=== PATIENT | female | born 1965 | race Caucasian/White ===

== ENCOUNTER 2016-08-07 12:31 | Emergency (ER) | payer OTHER ==
[2016-08-07 14:21] VITALS: BP 140/81
--- NOTE | 2016-08-07 15:09 | UC ---
Abdominal Pain Female HPI - HPI Summary HPI Summary: RUQ abdominal pain ("under ribs") starting 2 days ago after breakfast of coffee and cereal. Seems worse after eating, especially after beef tammy last night. Denies fever, vomiting, or diarrhea. - History of Current Complaint Chief Complaint: UCGI Stated Complaint: RIGHT SIDE ABDOMINAL PAIN Time Seen by Provider: 08/07/16 14:42 Hx Obtained From: Patient Hx Last Menstrual Period: n/a ?: No Onset/Duration: Gradual Onset, Lasting Days Timing: Constant Severity Initially: Mild Severity Currently: Moderate Location: Discrete At: RUQ Radiates: Yes Radiates to: Back Character: Aching, Colicy, Cramping Aggravating Factor(s): Food Alleviating Factor(s): Nothing Associated Signs and Symptoms: Negative: Fever, Cough, Constipation, Blood in Stool, Nausea, Vomiting Allergies/Adverse Reactions: Allergies Allergy/AdvReac Type Severity Reaction Status Date / Time Guaifenesin [From Entex ER] Allergy Severe Convulsions Verified 10/04/15 09:15 Methylparaben [From Entex ER] Allergy Severe Convulsions Verified 10/04/15 09:15 Penicillins Allergy Severe Hives Verified 10/04/15 09:15 Phenylephrine [From Entex ER] Allergy Severe Convulsions Verified 10/04/15 09:15 Propylparaben [From Entex ER] Allergy Severe Convulsions Verified 10/04/15 09:15 Citalopram [From Celexa] Allergy Intermediate Rash Verified 10/04/15 09:15 Mercaptobenzothiazole Allergy Unknown Verified 10/04/15 09:15 Reaction Details Mercaptomerin Allergy Unknown Verified 10/04/15 09:15 Reaction Details Mercaptopurine Allergy Unknown Verified 10/04/15 09:15 Reaction Details Cyclobenzaprine AdvReac Intermediate Nausea Verified 10/04/15 09:15 [From Flexeril] Sulfa Drugs AdvReac Vomiting Verified 10/04/15 09:15 wool Allergy Rash Uncoded 10/04/15 09:15 PMH/Surg Hx/FS Hx/Imm Hx Endocrine History Of: Denies: Diabetes Cardiovascular History Of: Denies: Hypertension, Congestive Heart Failure Respiratory History Of: Denies: Asthma GI/ History Of: Reports: Ulcer Denies: Gastrointestinal Bleed, Renal Disease - Surgical History Surgical History: Yes Surgery Procedure, Year, and Place: Hysterectomy, left rotator cuff surgery, left menicus repair 2001,right carpal tunnel surgery 1991, appendectomy, R elbow nerve relocation., left hand 07/2014; right rotatror cuff 03/2016 - Family History Known Family History: Positive: None - Social History Occupation: Employed Full-time Lives: With Family Alcohol Use: Occasionally Substance Use Type: None Smoking Status (MU): Former Smoker Review of Systems Constitutional: Negative Skin: Negative Eyes: Negative ENT: Negative Respiratory: Negative Cardiovascular: Negative Gastrointestinal: Abdominal Pain Genitourinary: Negative Motor: Negative Neurovascular: Negative Musculoskeletal: Negative Neurological: Negative Psychological: Negative All Other Systems Reviewed And Are Negative: Yes Physical Exam Triage Information Reviewed: Yes Appearance: Well-Appearing, No Pain Distress, Well-Nourished Vital Signs: Initial Vital Signs Temp 97.7 F 08/07/16 14:14 Pulse 60 08/07/16 14:14 Resp 18 08/07/16 14:14 BP 140/81 08/07/16 14:14 Vital Signs Reviewed: Yes Eye Exam: Normal Eyes: Positive: Conjunctiva Clear ENT Exam: Normal ENT: Positive: Normal ENT inspection, Hearing grossly normal, Pharynx normal, TMs normal Dental Exam: Normal Neck exam: Normal Neck: Positive: Supple, Nontender, No Lymphadenopathy Respiratory Exam: Normal Respiratory: Positive: Chest non-tender, Lungs clear, Normal breath sounds, No respiratory distress, No accessory muscle use Cardiovascular Exam: Normal Cardiovascular: Positive: RRR, No Murmur Abdomen Description: Positive: Soft, Other: - Positive Riddle sign. Negative: CVA Tenderness (R), CVA Tenderness (L), Distended Bowel Sounds: Positive: Present Neurological Exam: Normal Psychological Exam: Normal Skin Exam: Normal Abd Pain Female Course/Dx - Differential Dx/Diagnosis Provider Diagnoses: Biliary colic Discharge - Discharge Plan Condition: Stable Disposition: HOME Prescriptions: Hyoscyamine Sulfate [Levsin] 0.125 mg PO QID #20 tab Patient Education Materials: Biliary Colic (ED), Low Fat Diet (ED) Referrals: Tim Valdez MD [Medical Doctor] - Additional Instructions: Stay on clear liquid diet until your pain improves (you can also use ibuprofen and the antispasmodics as needed), then switch to the low fat diet. If you develop fever, vomiting, or severe pain at any time, please go to the emergency department. You can call the [facility] here in [place] at to find out if there are available surgical appointments in [place].
== END 2016-08-07 15:15 | disposition home or self-care (01) ==
LOC: UCCORT 12:31
DX: K80.50 Calculus of bile duct without cholangitis or cholecystitis without obstruction (principal); Z87.891 Personal history of nicotine dependence; Z88.0 Allergy status to penicillin; Z88.2 Allergy status to sulfonamides; Z88.8 Allergy status to other drugs, medicaments and biological substances
CPT/HCPCS: 99212; G0463

== ENCOUNTER 2017-09-02 11:41 | Emergency (ER) | payer OTHER ==
[2017-09-02 12:24] VITALS: BP 147/75
--- OUTSIDE RECORDS SUMMARY | 2017-09-02 12:40 | XMS REPORT ---
:1965 External Reference #:[id number] Author Organization [facility] Address [address] [place] [address] Phone [phone] Care Team Providers Name Role Phone Jeremie Smith NP Care Team Information Housekeeping Aide Unavailable Jeremie Smith NP Primary Care Physician Unavailable Payers Type Date Identification Numbers Payment Provider Subscriber Commercial Policy Number: [id number] [employer] Woody Myles PayID: [id number] [address] [place] [address] Commercial Expires: 2016 Policy Number: [id number] [employer] Woody Myles PayID: [id number] [address] [place] [address] Problems Description No Information Family History Date Family Member(s) Problem(s) Comments Father Diabetes Father Leukemia Father Prostate Cancer Mother Cancer, Thyroid Mother Asthma And Allergies Social History Type Date Description Comments Marital Status 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 ETOH Use Rarely consumes alcohol Recreational Drug Use Never Used Drugs Allergies, Adverse Reactions, Alerts Date Description Reaction Status Severity Comments 09/14/2012 Penicillin active 09/14/2012 sulfa active Medications Medication Date Status Form Strength Qnty SIG Indications Ordering Provider Desloratadine 03/16/ Active Tablets 5mg 30tabs 1 by David Edmond mouth Sadi, every M.D. day Montelukast 03/16/ Active Tablets 10mg 30tabs 1 by Sriram Edmond mouth Sadi, every M.D. day Omeprazole 02/09/ Active Capsules DR 20mg 30caps 1 by David Edmond mouth Sadi, every M.D. day. Zyrtec Allergy / Active Capsules 10mg 1 by Unknown 0000 mouth every day Flonase Allergy / Active Suspension 50mcg/Act 2 sprays Unknown Relief 0000 each nostril twice daily No Active Unknown Medications 2016 - 2016 Amoxicillin 12/28/ Hx Capsules 500mg 30caps 1 by Mayito, 2016 - mouth Sadi, M.D. 2017 times a day x 10 days Nasonex 10/17/ Hx Suspension 50mcg/Act 1bottl 2 Mayito 2012 - e squirts Sadi, M.D. 2016 nostril qd Prednisone 09/14/ Hx Tablets 20mg 5tabs 1 po qd Mayito 2012 - for 5 Sadi, 12/27/ M.D. 2016 Omeprazole 09/14/ Hx Capsules DR 40mg 30caps 1 po qd Mayito 2012 - Sadi, 12/27/ M.D. 2016 Actifed / Hx Unknown - 2016 Nasonex / Hx Unknown - 2016 Saline Nasal / Hx Unknown Rinses - 2016 Vital Signs Date Vital Result Comment 08/30/2017 Weight 195.00 lb Height 64 inches 5'4" BMI (Body Mass Index) 33.5 kg/m2 Heart Rate 64 /min O2 % BldC Oximetry 99 % Body Temperature 98.1 F Pain Level 0 08/23/2017 Weight 191.50 lb Height 64 inches 5'4" BMI (Body Mass Index) 32.9 kg/m2 BP Systolic 137 mmHg BP Diastolic 80 mmHg Heart Rate 59 /min O2 % BldC Oximetry 99 % Body Temperature 97.5 F Pain Level 2 ears and sinuses 03/16/2017 Weight 190.38 lb Height 64 inches 5'4" BMI (Body Mass Index) 32.7 kg/m2 BP Systolic 137 mmHg BP Diastolic 80 mmHg Heart Rate 78 /min O2 % BldC Oximetry 97 % Body Temperature 96.2 F Pain Level 0 02/09/2017 Weight 191.00 lb Height 64 inches 5'4" BMI (Body Mass Index) 32.8 kg/m2 BP Systolic 128 mmHg BP Diastolic 77 mmHg Heart Rate 74 /min O2 % BldC Oximetry 98 % Body Temperature 97.7 F 12/28/2016 Weight 187.12 lb Height 64 inches 5'4" BMI (Body Mass Index) 32.1 kg/m2 BP Systolic 134 mmHg BP Diastolic 81 mmHg Heart Rate 55 /min O2 % BldC Oximetry 97 % Body Temperature 98.2 F 10/17/2012 Weight 172.00 lb Height 64 inches 5'4" BMI (Body Mass Index) 29.5 kg/m2 BP Systolic 120 mmHg BP Diastolic 78 mmHg Body Temperature 97.2 F 09/14/2012 Weight 170.00 lb Height 64 inches 5'4" BMI (Body Mass Index) 29.2 kg/m2 BP Systolic 134 mmHg BP Diastolic 82 mmHg Heart Rate 62 /min O2 % BldC Oximetry 99 % Body Temperature 97.8 F Results Description No Information Procedures Date CPT Code Description Status 08/23/2017 52264 Tympanometry Completed 08/23/2017 19624 Audiometry, Comprehensive Completed 02/09/2017 45695 Fiberoptic Laryngoscopy,Diag. Completed 09/14/2012 45029 Fiberoptic Laryngoscopy,Diag. Completed Encounters Type Date Location Provider CPT E/M Dx Office Visit 08/23/2017 1:00p [place] [address] J32.9 H69.93 Office Visit 03/16/2017 8:15a [place] [address] J30.9 Office Visit 02/09/2017 8:15a [place] [address] K21.9 J31.0 J31.2 Office Visit 12/28/2016 1:30p [place] [address] J02.9 K11.20 Office Visit 10/17/2012 8:45a [place] [address] 473.9 Office Visit 09/14/2012 8:45a [place] [address] 473.9 784.42 Plan of Care No Information Available
--- OUTSIDE RECORDS SUMMARY | 2017-09-02 12:40 | XMS REPORT ---
:1965 External Reference #:[id number] Author Organization [facility] Address [address] [place] [address] Phone [phone] Care Team Providers Name Role Phone Jeremie Smith NP Care Team Information Wastewater Process Engineer Unavailable Jeremie Smith NP Primary Care Physician Unavailable Payers Type Date Identification Numbers Payment Provider Subscriber Commercial Policy Number: [id number] [employer] Woody Myles PayID: [id number] [address] [place] [address] Commercial Expires: 2016 Policy Number: [id number] [employer] Woody Myles PayID: [id number] [address] [place] [address] Problems Description No Information Family History Date Family Member(s) Problem(s) Comments Father Diabetes Father Leukemia Father Prostate Cancer Mother Cancer, Thyroid Mother Asthma And Allergies Social History Type Date Description Comments Marital Status 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 day. Zyrtec [...] Procedures Date CPT Code Description Status 08/23/2017 81113 Tympanometry Completed 08/23/2017 20709 Audiometry, Comprehensive Completed 02/09/2017 73638 Fiberoptic Laryngoscopy,Diag. Completed 09/14/2012 06535 Fiberoptic Laryngoscopy,Diag. Completed Encounters Type Date Location Provider CPT E/M Dx Office Visit 08/30/2017 10:30a [place] [address] J32.9 H69.93 J30.9 Office Visit 08/23/2017 1:00p [place] [address] J32.9 H69.93 Office Visit 03/16/2017 8:15a [place] [address] J30.9 Office Visit 02/09/2017 8:15a [place] [address] K21.9 J31.0 J31.2 Office Visit 12/28/2016 1:30p [place] [address] J02.9 K11.20 Office Visit 10/17/2012 8:45a [place] [address] 473.9 Office Visit 09/14/2012 8:45a [place] [address] 473.9 784.42 Plan of Care No Information Available
--- OUTSIDE RECORDS SUMMARY | 2017-09-02 12:40 | XMS REPORT ---
:1965 External Reference #:[id number] Author Organization [facility] Address [address] [place] [address] Phone [phone] Care Team Providers Name Role Phone Jeremie Smith NP Care Team Information Supervisor Screen Making Unavailable Jeremie Smith NP Primary Care Physician Unavailable Payers Type Date Identification Numbers Payment Provider Subscriber Commercial Policy Number: [id number] [employer] Woody Myles PayID: [id number] [address] [place] [address] Commercial Expires: 2016 Policy Number: [id number] [employer] Woody Myles PayID: [id number] [address] [place] [address] Problems Description No Information Family History Date Family Member(s) Problem(s) Comments Father Diabetes Father Leukemia Father Prostate Cancer Mother Cancer, Thyroid Mother Asthma And Allergies Social History Type Date Description Comments Marital Status 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 2017 times [...] 12/27/ M.D. 2016 Actifed / Hx Unknown 2016 Nasonex / Hx Unknown 2016 Saline Nasal / Hx Unknown Rinses 2016 Vital Signs Date Vital Result Comment 08/23/2017 Weight 191.50 lb Height 64 inches [...] Procedures Date CPT Code Description Status 08/23/2017 83402 Tympanometry Completed 08/23/2017 51122 Audiometry, Comprehensive Completed 02/09/2017 48455 Fiberoptic Laryngoscopy,Diag. Completed 09/14/2012 54100 Fiberoptic Laryngoscopy,Diag. Completed Encounters Type Date Location Provider CPT E/M Dx Office Visit 08/23/2017 1:00p [place] [address] J32.9 H69.93 Office Visit 03/16/2017 8:15a [place] [address] J30.9 Office Visit 02/09/2017 8:15a [place] [address] K21.9 J31.0 J31.2 Office Visit 12/28/2016 1:30p [place] [address] J02.9 K11.20 Office Visit 10/17/2012 8:45a [place] [address] 473.9 Office Visit 09/14/2012 8:45a [place] [address] 473.9 784.42 Plan of Care Future Appointment(s):08/30/2017 10:30 am - Kelly Perry NP at Main Office
--- OUTSIDE RECORDS SUMMARY | 2017-09-02 12:41 | XMS REPORT ---
:1965 External Reference #:[id number] Author Organization [facility] Address [address] [place] [address] Phone [phone] Care Team Providers Name Role Phone Jeremie Smith NP Care Team Information Shipping Track Supervisor Unavailable Jeremie Smith NP Primary Care Physician Unavailable Payers Type Date Identification Numbers Payment Provider Subscriber Commercial Policy Number: [id number] [employer] Woody Myles PayID: [id number] [address] [place] [address] Commercial Expires: 2016 Policy Number: [id number] [employer] Woody Myles PayID: [id number] [address] [place] [address] Problems Description No Information Family History Date Family Member(s) Problem(s) Comments Father Diabetes Father Leukemia Father Prostate Cancer Mother Cancer, Thyroid Mother Asthma And Allergies Social History Type Date Description Comments Marital Status Occupation Retired Occupation [employer] Cigarette Use Used To Smoke Cigarettes But [...] Information Procedures Date CPT Code Description Status 02/09/2017 67554 Fiberoptic Laryngoscopy,Diag. Completed 09/14/2012 40246 Fiberoptic Laryngoscopy,Diag. Completed Encounters Type Date Location Provider CPT E/M Dx Office Visit 03/16/2017 8:15a [place] [address] J30.9 Office Visit 02/09/2017 8:15a [place] [address] K21.9 J31.0 J31.2 Office Visit 12/28/2016 1:30p [place] [address] J02.9 K11.20 Office Visit 10/17/2012 8:45a [place] [address] 473.9 Office Visit 09/14/2012 8:45a [place] [address] 473.9 784.42 Plan of Care No Information Available
--- NOTE | 2017-09-02 14:40 | UC ---
Minor Trauma HPI - HPI Summary HPI Summary: 52 yo female fell this AM walking dog fell forward c/o right hand pain (4th digit the worse) and left shoulder pain pain worse with movement some relief with motrin she is left handed - History of Current Complaint Chief Complaint: UCUpperExtremity Stated Complaint: LFT SHOULDER PAIN S/P FALL Time Seen by Provider: 09/02/17 14:27 Hx Obtained From: Patient Hx Last Menstrual Period: n/a Onset/Duration: Sudden Onset Onset Of Pain: Immediate Severity Initially: Severe Pain Intensity: 8 - severe movement/mild at rest Pain Scale Used: 0-10 Numeric Mechanism Of Injury: Fall From A Standing Position Aggravating Factor(s): Movement Alleviating Factor(s): OTC Meds, Rest Associated Signs And Symptoms: Positive: Ecchymosis, Swelling. Negative: Loss Of Consciousness - Risk Factors Penetrating Injury Risk Factors: Negative - Allergies/Home Medications Allergies/Adverse Reactions: Allergies Allergy/AdvReac Type Severity Reaction Status Date / Time citalopram [From Celexa] Allergy Rash Verified 09/02/17 12:27 guaifenesin [From Entex LA] Allergy See Comment Verified 09/02/17 12:27 mercaptopurine Allergy See Comment Verified 09/02/17 12:27 Penicillins Allergy Rash Verified 09/02/17 12:27 phenylephrine [From Entex LA] Allergy See Comment Verified 09/02/17 12:27 phenylpropanolamine Allergy See Comment Verified 09/02/17 12:27 [From Entex LA] pseudoephedrine Allergy Swelling Verified 09/02/17 12:27 [From Sudafed] Of Face,Lips,& Throat Sulfa (Sulfonamide Allergy Vomiting Verified 09/02/17 12:27 Antibiotics) wool Allergy Rash Verified 09/02/17 12:27 Home Medications: Home Medications Fluticasone NASAL SPRAY 50MCG* [Flonase NASAL SPRAY 50MCG*] 2 spray BOTH NARES DAILY 09/02/17 [History Confirmed 09/02/17] PMH/Surg Hx/FS Hx/Imm Hx Previously Healthy: Yes - seasonal allergies - Surgical History Surgical History: Yes Surgery Procedure, Year, and Place: Hysterectomy, left rotator cuff surgery, left menicus repair 2001,right carpal tunnel surgery 1991, appendectomy, R elbow nerve relocation., left hand 07/2014; right rotatror cuff 03/2016 - Family History Known Family History: Positive: Diabetes, Blood Disorder - dad has leukemia - Social History Alcohol Use: Rare Substance Use Type: None Smoking Status (MU): Former Smoker Review of Systems Constitutional: Negative Skin: Bruising Eyes: Negative ENT: Negative Respiratory: Negative Cardiovascular: Negative Gastrointestinal: Negative Genitourinary: Negative Motor: Negative Neurovascular: Negative Musculoskeletal: Arthralgia Neurological: Negative Psychological: Negative Is Patient Immunocompromised?: No All Other Systems Reviewed And Are Negative: Yes Physical Exam Triage Information Reviewed: Yes Appearance: Well-Appearing, No Pain Distress, Well-Nourished Vital Signs: Initial Vital Signs Temp 98.3 F 09/02/17 12:20 Pulse 64 09/02/17 12:20 Resp 14 09/02/17 12:20 BP 147/75 09/02/17 12:20 Pulse Ox 100 09/02/17 12:20 Vital Signs Reviewed: Yes Eyes: Positive: Conjunctiva Clear ENT: Positive: Hearing grossly normal. Negative: Nasal congestion, Nasal drainage, Trismus, Muffled voice, Hoarse voice Neck: Positive: Supple, Nontender, No Lymphadenopathy Respiratory: Positive: Lungs clear, Normal breath sounds, No respiratory distress Cardiovascular: Positive: RRR, No Murmur Musculoskeletal: Positive: ROM Limited @ - right 3/4/5 fingers, left shoulder Neurological: Positive: Alert Psychological Exam: Normal Skin Exam: Normal Procedures - Procedure Summary Procedure Summary: Splint applied by me - Splinting Location: right hand (3/4/5 digits) Hand-Made Type: orthoglass Splint: volar Pre-Proc Neuro Vasc Exam: normal Post-Proc Neuro Vasc Exam: normal Diagnostics - Radiology No standard instances Xray Interpretation: No Acute Changes Radiology Interpretation Completed By: Radiologist Minor Trauma Course/Dx - Differential Dx/Diagnosis Provider Diagnoses: right 3/4/5 finger sprains. right knee contusion. left shoulder injury? partial rotator cuff tear Discharge - Discharge Plan Condition: Stable Disposition: HOME Patient Education Materials: Contusion in Adults (ED), Finger Sprain (ED), Shoulder Pain (ED) Referrals: MARILYNN Steven [Primary Care Provider] - Additional Instructions: I suggest you see your orthopedist about yous shoulder injury take copies of films use your sling for comfort you may remove you finger splint when symptoms improve Images Hands: 1 - tender/swollen/bruised 2 - tender Front/Back of Body, Lg ([place]): 1 - tender 2 - tender/pain with abduction
--- NOTE | 2017-09-02 14:57 | RAD ---
INDICATION: Right hand pain COMPARISON: None TECHNIQUE: AP, lateral, and oblique views were obtained. FINDINGS: The bony structures, joint spaces, and soft tissues are normal for age. IMPRESSION: NEGATIVE EXAMINATION.
--- NOTE | 2017-09-02 14:59 | RAD ---
INDICATION: Left shoulder pain COMPARISON: None TECHNIQUE: Routine frontal, Y and axial views were obtained. FINDINGS: There are no acute bony findings. There is minor a.c. and glenohumeral osteoarthritis. The soft tissues are intact IMPRESSION: MINOR OSTEOARTHRITIS.
== END 2017-09-02 15:13 | disposition home or self-care (01) ==
LOC: UCCORT 11:41
DX: S63.618A Unspecified sprain of other finger, initial encounter (principal); S80.01XA Contusion of right knee, initial encounter; S49.92XA Unspecified injury of left shoulder and upper arm, initial encounter; M75.102 Unspecified rotator cuff tear or rupture of left shoulder, not specified as traumatic; Z87.891 Personal history of nicotine dependence; W19.XXXA Unspecified fall, initial encounter; Y93.K1 Activity, walking an animal; Y92.9 Unspecified place or not applicable
CPT/HCPCS: 99211; G0463

== ENCOUNTER 2019-05-07 15:02 | Emergency (ER) | payer OTHER ==
[2019-05-07 15:28] VITALS: BP 144/60
[2019-05-07] MEDS ORDERED: Ondansetron ODT TAB* 4 MG PO ONE (15:47)
--- NOTE | 2019-05-07 16:09 | UC ---
Laceration HPI - HPI Summary HPI Summary: Pt c/o laceration to left thumb that happened just prior to arrival to . Pt was using mandolin to slice potatoes and pt sliced thumb. Pt believes she is UTD with tetanus. 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 Pt began to flush at the neck, shake, and teeth chatter. Pt states that she would not tolerate having lidocaine and sutures placed. We discussed using skin adhesive and steri strips and pt stated that she would not be able to tolerate the application of the sara adhesive and would be agreeable to steri strips. - History Of Current Complaint Chief Complaint: FRANCINEkin Stated Complaint: LACERATION LEFT THUMB Time Seen by Provider: 05/07/19 15:23 Hx Obtained From: Patient Hx Last Menstrual Period: 1992 Laceration Location: Finger - left thumb Mechanism Of Injury: Sharp Trauma Onset/Duration: Sudden Onset Severity: Moderate Pain Intensity: 6 Aggravating Factors: Position, Movement - Allergies/Home Medications Allergies/Adverse Reactions: Allergies Allergy/AdvReac Type Severity Reaction Status Date / Time citalopram [From Celexa] Allergy Rash Verified 05/07/19 15:20 guaifenesin [From Entex LA] Allergy See Comment Verified 05/07/19 15:20 mercaptopurine Allergy See Comment Verified 05/07/19 15:20 Penicillins Allergy Rash Verified 05/07/19 15:20 phenylephrine [From Entex LA] Allergy See Comment Verified 05/07/19 15:20 phenylpropanolamine Allergy See Comment Verified 05/07/19 15:20 [From Entex LA] pseudoephedrine Allergy Swelling Verified 05/07/19 15:20 [From Sudafed] Of Face,Lips,& Throat Sulfa (Sulfonamide Allergy Vomiting Verified 05/07/19 15:20 Antibiotics) wool Allergy Rash Verified 05/07/19 15:20 Home Medications: Home Medications diphenhydrAMINE HCl [Benadryl Allergy] 1 tab PO BEDTIME 05/07/19 [History Confirmed 05/07/19] PMH/Surg Hx/FS Hx/Imm Hx Previously Healthy: Yes - Surgical History Surgical History: Yes Surgery Procedure, Year, and Place: Hysterectomy, left rotator cuff surgery, left menicus repair 2001, right carpal tunnel surgery 1991, appendectomy, R elbow nerve relocation., left hand 07/2014; right rotatror cuff 03/2016 - Family History Known Family History: Positive: Diabetes, Blood Disorder - dad has leukemia - Social History Occupation: Retired Lives: With Family Alcohol Use: Occasionally Substance Use Type: None Smoking Status (MU): Former Smoker Have You Smoked in the Last Year: No When Did the Patient Quit Smoking/Using Tobacco: 2008 - Immunization History Vaccination Up to Date: Yes Review of Systems All Other Systems Reviewed And Are Negative: Yes Constitutional: Positive: Negative Skin: Positive: Other - laceration to left thumb Eyes: Positive: Negative ENT: Positive: Negative Respiratory: Positive: Negative Cardiovascular: Positive: Negative Gastrointestinal: Positive: Negative Genitourinary: Positive: Negative Motor: Positive: Negative Neurovascular: Positive: Negative Musculoskeletal: Positive: Myalgia - at wound site Neurological: Positive: Negative Psychological: Positive: Negative Is Patient Immunocompromised?: No Physical Exam Triage Information Reviewed: Yes Appearance: Pain Distress, Other: - anxious Vital Signs: Initial Vital Signs Temp 98.1 F 05/07/19 15:22 Pulse 75 05/07/19 15:22 Resp 16 05/07/19 15:22 BP 144/60 05/07/19 15:22 Pulse Ox 99 05/07/19 15:22 Vital Signs Reviewed: Yes Eye Exam: Normal ENT: Positive: Hearing grossly normal Dental Exam: Normal Respiratory: Positive: No respiratory distress Musculoskeletal Exam: Normal Musculoskeletal: Positive: Strength Intact, ROM Intact Neurological Exam: Normal Neurological: Positive: Alert Psychological Exam: Normal - anxious Skin Exam: Other - laceration, left thumb Laceration Repair - Laceration Repair 1 Description: Linear Laceration Size After Repair: Length (cm) - .5, Width (mm) - 3, Depth (mm) - 2 Modified For Repair: No Irrigation With Pressure Irrigation Device: Yes Closure Material: SteriStrips Closure Method: Single Layer Laceration Course/Dx - Course/Dx Course Of Treatment: I discussed with the pt the care and follow up plan for her laceration. Pt verbalized understanding and agreed to plan of care. - Differential Dx - Laceration/Wound Differental Diagnoses: Laceration - Diagnosis Provider Diagnosis: Laceration of left thumb, Skin wound closed with sterile strip Discharge ED - Sign-Out/Discharge Documenting (check all that apply): Patient Departure All imaging exams completed and their final reports reviewed: No Studies - Discharge Plan Condition: Stable Disposition: HOME Prescriptions: DOXYcycline CAP(*) [DOXYcycline 100MG CAP(*)] 100 mg PO Q12H #14 cap Patient Education Materials: Laceration (ED), Steristrips (ED) Referrals: Morenita Zayas PA [Primary Care Provider] - If Needed Additional Instructions: Please keep your wound clean and dry. Do not apply antibiotic ointment. Change the dressing on 05/11/19 or before if you notice increased pain, swelling , discharge or any worsening of symptoms. Please return to if you need a re- evaluation of your wound. Please check with your PCP for the last time you had a tetanus vaccine. - Billing Disposition and Condition Condition: STABLE Disposition: Home
[2019-05-07] MEDS ORDERED: DOXYcycline CAP(*) 100 MG PO ONE (16:19)
== END 2019-05-07 16:39 | disposition home or self-care (01) ==
LOC: UCCORT 15:02
DX: S61.012A Laceration without foreign body of left thumb without damage to nail, initial encounter (principal); W27.4XXA Contact with kitchen utensil, initial encounter; Y93.G1 Activity, food preparation and clean up; Y92.9 Unspecified place or not applicable; Z88.0 Allergy status to penicillin; Z88.2 Allergy status to sulfonamides; Z88.8 Allergy status to other drugs, medicaments and biological substances; Z91.048 Other nonmedicinal substance allergy status; Z87.891 Personal history of nicotine dependence
CPT/HCPCS: 99212; A9270-GY; G0463

== ENCOUNTER 2019-05-15 07:36 | Emergency (ER) | payer OTHER ==
[2019-05-15 08:15] VITALS: BP 129/67
--- NOTE | 2019-05-15 08:56 | UC ---
Skin Complaint HPI - HPI Summary HPI Summary: 54 year old female with laceration to left thumb on 05/07, seen here, closed with skin glue, steri-strips presents today with swelling, redness, tenderness to DIP of thumb. able to move IP without pain. - History of Current Complaint Chief Complaint: UCLaceration Time Seen by Provider: 05/15/19 08:43 Stated Complaint: LEFT THUMB RECHECK Hx Obtained From: Patient Hx Last Menstrual Period: 1992 ?: No Onset/Duration: Gradual Onset, Lasting Days Skin Exposure Onset/Duration: Minutes Ago Onset Severity: Mild Current Severity: Mild Pain Intensity: 0 Pain Scale Used: 0-10 Numeric Location: Discrete - L thumb - Allergy/Home Medications Allergies/Adverse Reactions: Allergies Allergy/AdvReac Type Severity Reaction Status Date / Time citalopram [From Celexa] Allergy Rash Verified 05/15/19 08:15 guaifenesin [From Entex LA] Allergy See Comment Verified 05/15/19 08:15 mercaptopurine Allergy See Comment Verified 05/15/19 08:15 Penicillins Allergy Rash Verified 05/15/19 08:15 phenylephrine [From Entex LA] Allergy See Comment Verified 05/15/19 08:15 phenylpropanolamine Allergy See Comment Verified 05/15/19 08:15 [From Entex LA] pseudoephedrine Allergy Swelling Verified 05/15/19 08:15 [From Sudafed] Of Face,Lips,& Throat Sulfa (Sulfonamide Allergy Vomiting Verified 05/15/19 08:15 Antibiotics) wool Allergy Rash Verified 05/15/19 08:15 PMH/Surg Hx/FS Hx/Imm Hx Previously Healthy: No - Surgical History Surgical History: Yes Surgery Procedure, Year, and Place: Hysterectomy, left rotator cuff surgery, left menicus repair 2001, right carpal tunnel surgery 1991, appendectomy, R elbow nerve relocation., left hand 07/2014; right rotatror cuff 03/2016 - Family History Known Family History: Positive: Diabetes, Blood Disorder - dad has leukemia - Social History Occupation: Retired Alcohol Use: Occasionally Substance Use Type: None Smoking Status (MU): Former Smoker Have You Smoked in the Last Year: No When Did the Patient Quit Smoking/Using Tobacco: 2008 - Immunization History Vaccination Up to Date: Yes Review of Systems All Other Systems Reviewed And Are Negative: Yes Constitutional: Positive: Negative Motor: Positive: Decreased ROM Musculoskeletal: Positive: Arthralgia, Edema, Myalgia Is Patient Immunocompromised?: No Physical Exam Triage Information Reviewed: Yes Appearance: Well-Appearing, No Pain Distress, Well-Nourished Vital Signs: Initial Vital Signs Temp 97.6 F 05/15/19 08:11 Pulse 66 05/15/19 08:11 Resp 16 05/15/19 08:11 BP 129/67 05/15/19 08:11 Pulse Ox 99 05/15/19 08:11 Vital Signs Reviewed: Yes Eyes: Positive: Conjunctiva Clear ENT: Positive: Hearing grossly normal Musculoskeletal: Positive: Strength Intact, ROM Intact, Edema @ - distal thumb L , no TTP around IP, MCP. rad/ ulnar pulses 2+ Neurological: Positive: Alert, Muscle Tone Normal Psychological: Positive: Normal Response To Family Skin: Positive: Other - mild erythema around distal thumb left sided Course/Dx - Course Course Of Treatment: Cellulitis, left thumb - Antibiotics as directed, may stop after 5 days if symptoms completely resolved. - Motrin/ tylenol as needed for pain - COntinue to monitor area - Diflucan once as needed for yeast infection- take after completed antibiotics , use over the counter creams while on antibiotics. - Diagnoses Provider Diagnosis: Cellulitis, finger Discharge ED - Sign-Out/Discharge Documenting (check all that apply): Patient Departure All imaging exams completed and their final reports reviewed: No Studies - Discharge Plan Condition: Good Disposition: HOME Prescriptions: Cephalexin CAP* [Keflex CAP*] 500 mg PO QID #28 cap Patient Education Materials: Cellulitis (DC) Referrals: Morenita Zayas PA [Primary Care Provider] - Additional Instructions: - Antibiotics as directed, may stop after 5 days if symptoms completely resolved. - Motrin/ tylenol as needed for pain - COntinue to monitor area - Diflucan once as needed for yeast infection- take after completed antibiotics , use over the counter creams while on antibiotics. - Billing Disposition and Condition Condition: GOOD Disposition: Home
== END 2019-05-15 09:01 | disposition home or self-care (01) ==
LOC: UCCORT 07:36
DX: L03.012 Cellulitis of left finger (principal); S61.012D Laceration without foreign body of left thumb without damage to nail, subsequent encounter; Z88.1 Allergy status to other antibiotic agents; Z88.2 Allergy status to sulfonamides; Z91.09 Other allergy status, other than to drugs and biological substances; Z87.891 Personal history of nicotine dependence; X58.XXXD Exposure to other specified factors, subsequent encounter
CPT/HCPCS: 99212; G0463